=== PATIENT | male | born 1980 | race Caucasian/White ===

== ENCOUNTER 2022-06-29 13:30 | Emergency (ER) | payer BC, SELFPAY ==
[2022-06-29 13:40] VITALS: BP 117/70; PULSE 84; RESP 18; TEMP 36.2; O2SAT 100
--- NOTE | 2022-06-29 14:08 | ED.URI ---
HPI - URI/Sore Throat General Chief Complaint: Upper Respiratory Infection Stated Complaint: Sore Throat,Cough,Diarrhea Time Seen by Provider: 06/29/22 13:55 History of Present Illness HPI Narrative: Randy Swenson is a 42 yo male with a PMH of GERD who comes to [facility] complaining of sore throat that is worsened greatly over the last couple days, fever that symptoms high as 102.5, generally not feeling well and headache. He has had symptoms for the last 3 to 4 days; he had a negative COVID test at home yesterday but will be retested today along with strep and flu Related Data Home Medications Medication Instructions Recorded Confirmed esomeprazole magnesium 20 mg 20 mg PO DAILY 06/29/22 06/29/22 capsule,delayed release (Nexium) Allergies Allergy/AdvReac Type Severity Reaction Status Date / Time No Known Allergies Allergy Verified 06/29/22 13:45 Review of Systems Review of Systems: CONSTITUTIONAL: Has fever, chills, sweats. Headache EYES: Denies visual changes, redness, discharge. ENT: Denies rhinorrhea, congestion, has sore throat, otalgia. CARDIOVASCULAR: Denies chest pain, palpitations, edema. RESPIRATORY: Denies dyspnea, wheezing, cough GASTROINTESTINAL: Denies abdominal pain, nausea, vomiting, diarrhea. GENITOURINARY: Denies dysuria, hematuria, abnormal discharge SKIN: Denies rash or itching. NEUROLOGIC: Denies numbness, or focal weakness. PSYCHIATRIC: Denies anxiety or depression. [facility] Past Medical History Medical History (Updated 06/29/22 @ 14:12 by Cristine Peres CNP) GERD (gastroesophageal reflux disease) Social History Social History (Updated 06/29/22 @ 14:10 by Cristine Peres CNP) Smoking status: Never smoker Alcohol intake: current Comments At time of signature, I agree with nursing past medical, surgical, social and family history. There is no relevant family history pertinent to the presenting complaint. Exam Narrative: GENERAL: This is a well-nourished, well-developed patient, in mild distress. HEAD: normocephalic, atraumatic. EYES: . Sclera clear/white. Vision is grossly intact. EARS: External ears normal, . Hearing grossly intact. NOSE: External nose normal without nasal discharge, nares without redness, no rhinorrhea. THROAT: Mucous membranes moist, posterior pharynx erythema with some edema on the posterior pharynx NECK: Neck supple, mildly-tender CARDIOVASCULAR: Regular rate and rhythm without murmurs, gallops, or rubs. RESPIRATORY: Clear to auscultation. Breath sounds equal bilaterally. No wheezes, rales, or rhonchi. GASTROINTESTINAL: Not done SKIN: warm, intact with no suspicious lesions or rash, good texture and turgor. NEURO: awake, alert, and oriented to person, place and time. There were no obvious focal neurologic abnormalities. Steady gait EXTREMITIES: Normal range of motion. BACK: Nontender without deformity Course Course Emergency Course: Patient comes to [facility] complaining of sore throat temperature and headache on and off x3 to 4 days he says it is very difficult for him to drink swallow anything besides liquid; the last time was 102.5 and he had a negative COVID test at home COVID test here- negative Strep test- rapid neg - sent for culture Flu test negative Started amoxicillin and prednsione, cepacol for throat pain, tylenol for fever, push fluids Level of Care: Express Care Visit Vital Signs Vital signs: Vital Signs Temperature 97.1 F L 06/29/22 13:40 Pulse Rate 84 06/29/22 13:40 Respiratory Rate 18 06/29/22 13:40 Blood Pressure 117/70 06/29/22 13:40 Pulse Oximetry 100 06/29/22 13:40 Oxygen Delivery Room Air 06/29/22 13:40 Temperature 97.1 F L 06/29/22 13:40 Pulse Rate 84 06/29/22 13:40 Respiratory Rate 18 06/29/22 13:40 Blood Pressure 117/70 06/29/22 13:40 Pulse Oximetry 100 06/29/22 13:40 Oxygen Delivery Room Air 06/29/22 13:40 MDM - URI/Sore Throat Differential Diagnosis Differential
== END 2022-06-29 14:29 | disposition home or self-care (01) ==
PROVIDERS: Emergency Provider Nurse Practitioner
DX: J02.9 Acute pharyngitis, unspecified (principal); Z20.822 Contact with and (suspected) exposure to COVID-19; K21.9 Gastro-esophageal reflux disease without esophagitis
CPT/HCPCS: 87081; 87426; 87804; 87880; 99213; C9803; G0463